=== PATIENT | male | born 1975 | race Caucasian/White ===

== ENCOUNTER 2018-08-16 21:08 | Emergency (ER) | payer SELFPAY ==
[~2018-08-16] VITALS: Ht 162.6 cm; Wt 68.2 kg
[2018-08-16 21:30] VITALS: BP 117/74
== END 2018-08-16 21:32 | disposition left against medical advice (07) ==
LOC: EMS 21:08
DX: Z00.00 Encounter for general adult medical examination without abnormal findings (principal); Z53.21 Procedure and treatment not carried out due to patient leaving prior to being seen by health care provider

== ENCOUNTER 2023-01-27 13:33 | Inpatient (IN) | payer MEDICAID ==
[2023-01-27] MEDS ORDERED: DiphenhydrAMINE HCL 50 MG/ML VIAL ONE (13:44)
[2023-01-27] MEDS ORDERED: LORazepam 2 MG/ML VIAL ONE (13:44)
[2023-01-27] MEDS ORDERED: HALOPERIDOL LACTATE 5 MG/ML VIAL ONE (13:44)
[2023-01-27] MEDS ORDERED: DiphenhydrAMINE HCL 50 MG/ML VIAL IM ONE (14:05)
[2023-01-27] MEDS ORDERED: LORazepam 2 MG/ML VIAL IM ONE (14:05)
[2023-01-27] MEDS ORDERED: HALOPERIDOL LACTATE 5 MG/ML VIAL IM ONE (14:05)
[2023-01-27 15:16] LABS: GLUCOMETER DEV NAME(LOC) POC.BV; POC SARS-COV2 AG, FIA NEGATIVE (NEGATIVE)
[2023-01-27 15:46] VITALS: BP 117/76; PULSE 101; RESP 17; TEMP 98.9
[2023-01-27] MEDS ORDERED: ZOLPIDEM TARTRATE 10 MG TABLET PO PRN (16:00)
[2023-01-27] MEDS ORDERED: INFLUENZA VIRUS VACCINE QVS 2023-24 (6MO+)/PF 60 MCG/0.5 ML SYRINGE IM. ONE (16:15)
[2023-01-27 20:12] VITALS: BP 124/70; PULSE 98; RESP 18; TEMP 98.4; O2SAT 97
[2023-01-28 08:28] VITALS: BP 118/60; PULSE 88; RESP 17; TEMP 97.7; O2SAT 97
[2023-01-28] MEDS: LORazepam 2 MG TABLET PO PRN ×2 (11:00→17:02)
[2023-01-28] MEDS: RisperiDONE 2 MG TABLET PO SCH ×2 (11:00→17:02)
[2023-01-28] MEDS: HALOPERIDOL 5 MG TABLET PO PRN ×2 (11:00→17:02)
[2023-01-28] MEDS ORDERED: ACETAMINOPHEN 325 MG TABLET PO PRN (16:00)
[2023-01-28] MEDS ORDERED: DOCUSATE SODIUM 100 MG CAPSULE PO PRN (16:00)
[2023-01-28] MEDS ORDERED: ONDANSETRON HCL 4 MG TABLET PO PRN (16:00)
[2023-01-28] MEDS ORDERED: GuaiFENesin/D-METHORPHAN [SUGAR-FREE] 200-20MG/10 ML SYRUP UDCUP PO PRN (16:00)
[2023-01-28] MEDS ORDERED: NICOTINE 14 MG/24 HOUR PATCH TD PRN (16:00)
[2023-01-28] MEDS ORDERED: MAGNESIUM HYDROXIDE SUSPENSION 30 ML UDCUP PO PRN (16:00)
[2023-01-28] MEDS ORDERED: MAG HYDROX/AL HYDROX/SIMETH ES 30 ML SUSPENSION UDCUP PO PRN (16:00)
[2023-01-28] MEDS ORDERED: IBUPROFEN 400 MG TABLET PO PRN (16:00)
[2023-01-28] MEDS ORDERED: PETROLATUM,WHITE 28 GM JELLY TP PRN (16:00)
[2023-01-28] MEDS ORDERED: LOPERAMIDE HCL 2 MG CAPSULE PO PRN (16:00)
[2023-01-28] MEDS ORDERED: CloNIDine HCL 0.1 MG TABLET PO PRN (16:00)
[2023-01-28] MEDS ORDERED: ALBUTEROL SULFATE HFA 90 MCG/PUFF 8 GM INHALER IH PRN (16:00)
[2023-01-28 20:13] VITALS: BP 124/60; PULSE 90; RESP 18; TEMP 97.6; O2SAT 97
[2023-01-29 08:37] VITALS: BP 104/60; PULSE 100; RESP 18; TEMP 98; O2SAT 95
[2023-01-29] MEDS: RisperiDONE 2 MG TABLET PO SCH ×2 (08:52→16:14)
[2023-01-29 21:36] VITALS: BP 101/58; PULSE 94; RESP 16; TEMP 98.5; O2SAT 96
[2023-01-30] MEDS: HALOPERIDOL 5 MG TABLET PO PRN (08:25)
[2023-01-30] MEDS: RisperiDONE 2 MG TABLET PO SCH (08:25)
[2023-01-30] MEDS: LORazepam 2 MG TABLET PO PRN (08:25)
[2023-01-30 08:31] VITALS: BP 106/60; PULSE 102; RESP 17; TEMP 97.8; O2SAT 98
[2023-01-30] MEDS ORDERED: RISP2TAB86 PO (09:17)
== END 2023-01-30 12:45 | disposition home or self-care (01) | DRG 750 ==
LOC: B3A 16:45
PROVIDERS: ADMIT Psychiatry & Neurology Child & Adolescent Psychiatry; ATTEND Psychiatry & Neurology Child & Adolescent Psychiatry
DX: F20.0 Paranoid schizophrenia (principal); G93.40 Encephalopathy, unspecified; G47.00 Insomnia, unspecified; R00.0 Tachycardia, unspecified; Z79.899 Other long term (current) drug therapy; Z20.822 Contact with and (suspected) exposure to COVID-19
CPT/HCPCS: 90686; J1200; J1630; J2060